=== PATIENT | female | born 1955 | race Caucasian/White ===

== ENCOUNTER → 2022-10-24 09:54 | Outpatient (REF) | payer OTHER, SELFPAY ==
--- NOTE | 2022-10-24 10:02 | CA_ITS ---
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 The calculated ejection fraction is 64% by biplane method. - There is mildly increased left ventricular wall thickness. - Evidence suggests grade I (mild) diastolic dysfunction. - The left atrium is moderately dilated. - No obvious valvular pathology seen on this study. Findings Procedure Information Contrast agent, definity, is being given per protocol without apparent complications. Left Ventricle Normal left ventricular cavity size. There is mildly increased left ventricular wall thickness. The left ventricular systolic function is normal. The calculated ejection fraction is 64% by biplane method. There is no evidence of regional wall motion abnormalities. Evidence suggests grade I (mild) diastolic dysfunction. Right Ventricle Normal right ventricular cavity size and systolic function. Atria The left atrium is moderately dilated. The right atrium is normal in size. Aortic Valve There is a normal trileaflet aortic valve. There is mild calcification of the aortic valve. There is no aortic valve stenosis. There is trace (trivial) aortic valve regurgitation. Mitral Valve There is mild mitral annular calcification. There is no mitral valve regurgitation. There is no mitral valve stenosis. Pulmonic Valve The pulmonic valve is likely normal. Tricuspid Valve There is trace tricuspid valve regurgitation. There is no evidence of pulmonary hypertension. Great Vessels The asc aorta and aortic arch are normal in size. Venous The inferior vena cava is mildly dilated and collapses greater than 50% with inspiration. Pericardium/Pleural There is no evidence of pericardial effusion. Prior Study Comparison No prior study available for comparison. Recommendations, Care & Conclusions No obvious valvular pathology seen on this study. Measurements 2D Linear Measurements IVSd: 1.23 0.6-0.9/0.6-1.0 cm LVIDd: 4.83 3.9-5.3/4.2-5.9 cm LVIDd Index: 2.02 2.4-3.2/2.2-3.1 cm/m2 LVIDs: 3.05 2.0-3.6 cm LVPWd: 1.17 0.7-1.1 cm LA Diam: 3.40 2.7-3.8/3.0-4.0 cm LAIDs Index: 1.42 1.5-2.3 cm/m2 LV Mass: 275.86 67-162/88-224 g LV Mass Index: 115.42 43-95/49-115 g/m2 LVOT Diam: 2.10 3.0+(-)1.3 cm 2D Systolic Function EF 4C: 61.70 >55% EF 2C: 66.50 >55% EF BiP: 64.10 >55% Mitral Valve MV Pk E: 0.86 MV PK A: 1.02 MV Decel Time: 285.00 E/A: 0.80 E'Lateral: 7.62 E'Medial: 5.87 E/E' Med: 14.60 E/E' Lat: 11.20 PHT: 84.00 MVA PHT: 2.62 Decel [place]: 3.00 Aortic Valve AoV Pk Haseeb: 1.52 AoV Mn Haseeb: 1.02 AoV VTI: 0.41 AoV Pk Grad: 9.00 Aov Mn Grad: 5.00 SUSAN Cont.VTI: 2.28 LVOT LVOT Pk Haseeb: 1.13 LVOT Mn Haseeb: 0.73 LVOT VTI: 0.27 LVOT Pk Grad: 5.00 LVOT Mn Grad: 3.00 LVOT Diam: 2.10 LVOT Area: 3.46 Diastolic Function MV Pk E: 0.86 MV Pk A: 1.02 E/A: 0.80 E'Medial: 5.87 E/E' Med: 14.60 E' Laterial: 7.62 E/E' Lat: 11.20 Right Ventricle TAPSE (mm): 21.90 TVS' Haseeb: 11.20 Tricuspid Valve TR Pk Ahseeb: 2.31 TR Pk Grad: 21.00 RA Press: 8.00 RVSP: 29.00 Great Vessels Aorta Sinus of Valsalva: 3.52 2.0-3.[address] [place]: 2.82 1.7-3.4 cm Ao Asc: 3.70 2.1-3.4 cm Ao Arch: 3.10 Updated in Other Vendor System with Status of Final Braulio Sewell MD electronically signed on 10/24/2022 2:03:19 PM with status of Final
== END ==
LOC: HO.CARD 09:54
PROVIDERS: Visit Provider Internal Medicine Critical Care Medicine
DX: R06.09 Other forms of dyspnea (principal)
CPT/HCPCS: 93306; Q9957

== ENCOUNTER → 2022-10-24 10:02 | Outpatient (BNV) | payer OTHER, SELFPAY | PROVIDERS: Visit Provider Internal Medicine | DX: I34.81 Nonrheumatic mitral (valve) annulus calcification (principal); I35.8 Other nonrheumatic aortic valve disorders | CPT/HCPCS: 93306 ==